=== PATIENT | female | born 1990 | race Caucasian/White ===

== ENCOUNTER 2016-10-06 11:05 | Emergency (ER) | payer SELFPAY ==
[~2016-10-06] VITALS: Ht 165.1 cm; Wt 46.3 kg
[~2016-10-06 11:05] MED LIST: PREN-96 PO
[2016-10-06 12:00] LABS: Basophils # (auto) 0 uL; Basophils % (auto) 0.4 % (0.0-2.0); Eosinophils # (auto) 0 uL; Eosinophils % (auto) 0.1 % (0.0-7.0); Hematocrit 41.5 % (36.0-46.0); Hemoglobin 13.2 g/dL (12.2-16.2); Lymphocytes # (auto) 1.8 uL; Lymphocytes % (auto) 14.6 % (10.0-50.0); Mean Corpuscular Hemoglobin 27.9 pg (28.0-32.0); Mean Corpuscular Hgb Conc. 31.9 g/dL (32.0-36.0); Mean Corpuscular Volume 87.4 fL (80.0-100.0); Mean Platelet Volume 9.3 fL (7.4-10.4); Monocytes # (auto) 0.8 uL; Monocytes % (auto) 6.6 % (0.0-12.0); Neutrophils # (auto) 9.5 uL; Neutrophils % (auto) 78.3 % (37.0-80.0); Platelet Count (auto) 257 10^3/uL (140-450); Red Cell Distribution Width 14.6 % (11.6-16.0); White Blood Cell 12.1 10^3/uL (4.4-10.8)
[2016-10-06 12:21] LABS: Albumin 4.1 g/dL (3.4-5.0); BUN/Creatinine Ratio 13.7; Bilirubin, Total 0.9 mg/dL (0.2-1.0); Calcium 8.7 mg/dL (8.5-10.1); Magnesium 2.1 mg/dL (1.6-2.6); Potassium 3.4 mmol/L (3.5-5.1); Total Protein 7.2 g/dL (6.4-8.2)
[2016-10-06 14:22] LABS: Urine Bilirubin Negative (Negative); Urine Blood Negative /uL (Negative); Urine Color Yellow (Yellow); Urine Glucose Normal (Normal); Urine Mucus FEW (None Seen); Urine Nitrite Negative (Negative); Urine RBC 1 /hpf (0 - 4); Urine Squamous Epithelial Cell FEW /hpf (<5); Urine Urobilinogen Normal (Negative)
[2016-10-06 14:24] LABS: Urine Ketone 3+ (Negative)
[2016-10-06] MEDS ORDERED: HYDROmorphone HCL 2 MG/ML VL IV ONE (14:30)
[2016-10-06] MEDS ORDERED: PANTOPRAZOLE SODIUM 40 MG/10 ML VIAL IV ONE (14:30)
[2016-10-06] MEDS ORDERED: ONDANSETRON HCL 4 MG/2 ML VIAL IV ONE (14:30)
[2016-10-06 15:50] VITALS: BP 107/63
[2016-10-07] MEDS ORDERED: ALBUAER3 IN (18:25)
== END 2016-10-06 16:08 | disposition home or self-care (01) ==
LOC: ER 11:09
DX: K29.70 Gastritis, unspecified, without bleeding (principal); J45.909 Unspecified asthma, uncomplicated; F17.210 Nicotine dependence, cigarettes, uncomplicated; F12.10 Cannabis abuse, uncomplicated
CPT/HCPCS: 36415; 80053; 81001; 83735; 84484; 85025; 93005; 94761; 96374; 96375; 99285; C9113; J1170; J2405

== ENCOUNTER 2016-10-07 11:19 | Inpatient (IN) | payer SELFPAY ==
[~2016-10-07] VITALS: Ht 165.1 cm; Wt 48.3 kg
[2016-10-07 13:07] LABS: Urine RBC None Seen /hpf (0 - 4)
[2016-10-07 13:24] LABS: Basophils # (auto) 0 uL; Basophils % (auto) 0.2 % (0.0-2.0); Eosinophils # (auto) 0 uL; Hematocrit 41.1 % (36.0-46.0); Lymphocytes # (auto) 0.9 uL; Lymphocytes % (auto) 7.9 % (10.0-50.0); Mean Corpuscular Hemoglobin 27.6 pg (28.0-32.0); Mean Corpuscular Hgb Conc. 31.7 g/dL (32.0-36.0); Mean Corpuscular Volume 87.1 fL (80.0-100.0); Mean Platelet Volume 9.5 fL (7.4-10.4); Monocytes # (auto) 0.4 uL; Monocytes % (auto) 3.1 % (0.0-12.0); Neutrophils # (auto) 10.6 uL; Neutrophils % (auto) 88.8 % (37.0-80.0); Platelet Count (auto) 244 10^3/uL (140-450); Red Cell Distribution Width 14.5 % (11.6-16.0); White Blood Cell 11.9 10^3/uL (4.4-10.8)
[2016-10-07 13:32] LABS: Urine Bilirubin Negative (Negative); Urine Blood Negative /uL (Negative); Urine Color Yellow (Yellow); Urine Glucose Normal (Normal); Urine Mucus FEW (None Seen); Urine Nitrite Negative (Negative); Urine Squamous Epithelial Cell FEW /hpf (<5); Urine Urobilinogen Normal (Negative)
[2016-10-07 13:33] LABS: Urine Ketone 4+ (Negative)
[2016-10-07 13:43] LABS: Potassium 3.6 mmol/L (3.5-5.1)
[2016-10-07 13:51] LABS: Albumin 4.2 g/dL (3.4-5.0); BUN/Creatinine Ratio 14.1; Calcium 8.4 mg/dL (8.5-10.1); Magnesium 1.9 mg/dL (1.6-2.6)
[2016-10-07 14:46] LABS: Bilirubin, Total 1.2 mg/dL (0.2-1.0); Total Protein 7.1 g/dL (6.4-8.2)
[2016-10-07] MEDS ORDERED: MORPHINE SULF INJ 2 MG/ML SYRINGE 1ML IV ONE (16:15)
[2016-10-07] MEDS ORDERED: ONDANSETRON HCL 4 MG/2 ML VIAL IM ONE (16:15)
[2016-10-07] MEDS ORDERED: LEVOFLOXACIN 500MG 100 ML IV ONE ×2 (18:00→18:45)
[2016-10-07] MEDS ORDERED: metroNIDAZOLE 500MG/100ML 100 ML IV ONE (18:00)
[2016-10-07 18:24] LABS: Amylase 28 U/L (25-115)
[2016-10-07] MEDS ORDERED: ALBUAER3 IN (18:25)
[2016-10-07] MEDS ORDERED: LORazepam 0.5 MG TAB PO PRN (18:45)
[2016-10-07] MEDS ORDERED: ALBUTEROL SULF 2.5 MG/0.5ML(0.5%) NEB SOLN NEB PRN (18:45)
[2016-10-07] MEDS ORDERED: HYDROcodone-ACET 5/325MG TAB PO PRN (18:45)
[2016-10-07] MEDS ORDERED: TEMAZEPAM 15 MG CAP PO PRN (18:45)
[2016-10-07] MEDS ORDERED: ACETAMINOPHEN 500 MG TAB PO PRN (18:45)
[2016-10-07] MEDS: SODIUM CHLORIDE 0.9% 1,000 ML IV SCH (19:04)
[2016-10-07] MEDS: PANTOPRAZOLE 40 MG TAB PO SCH (19:16)
[2016-10-07 19:40] VITALS: BP 133/77
[2016-10-07] MEDS: PROMETHAZINE HCL 25 MG/ML 1ML IV PRN (20:47)
[2016-10-07 21:34] VITALS: BP 133/77
[2016-10-07] MEDS: metroNIDAZOLE 500MG/100ML 100 ML IV SCH (23:24)
[2016-10-07] MEDS: MORPHINE SULF INJ 2 MG/ML SYRINGE 1ML IV PRN (23:56)
[2016-10-08] VITALS (7 sets, daily range): BP systolic 105–152; BP diastolic 53–92
[2016-10-08] MEDS: PROMETHAZINE HCL 25 MG/ML 1ML IV PRN ×2 (02:44→06:52)
[2016-10-08] MEDS: metroNIDAZOLE 500MG/100ML 100 ML IV SCH ×3 (05:11→17:52)
[2016-10-08] MEDS: SODIUM CHLORIDE 0.9% 1,000 ML IV SCH (05:12)
[2016-10-08 06:22] LABS: Basophils # (auto) 0 uL; Basophils % (auto) 0.3 % (0.0-2.0); Eosinophils # (auto) 0 uL; Eosinophils % (auto) 0.2 % (0.0-7.0); Hemoglobin 11.4 g/dL (12.2-16.2); Lymphocytes # (auto) 2.7 uL; Lymphocytes % (auto) 26.9 % (10.0-50.0); Mean Corpuscular Hemoglobin 27.6 pg (28.0-32.0); Mean Corpuscular Hgb Conc. 31.7 g/dL (32.0-36.0); Mean Corpuscular Volume 86.9 fL (80.0-100.0); Mean Platelet Volume 9.8 fL (7.4-10.4); Monocytes # (auto) 0.6 uL; Neutrophils # (auto) 6.8 uL; Neutrophils % (auto) 66.6 % (37.0-80.0); Platelet Count (auto) 205 10^3/uL (140-450); Red Cell Distribution Width 14.4 % (11.6-16.0); White Blood Cell 10.2 10^3/uL (4.4-10.8)
[2016-10-08 06:38] LABS: Albumin 2.9 g/dL (3.4-5.0); BUN/Creatinine Ratio 13.4; Calcium 7.7 mg/dL (8.5-10.1)
[2016-10-08] MEDS: MORPHINE SULF INJ 2 MG/ML SYRINGE 1ML IV PRN ×2 (06:51→23:52)
[2016-10-08 07:07] LABS: Total Protein 5.5 g/dL (6.4-8.2)
[2016-10-08] MEDS: PANTOPRAZOLE 40 MG TAB PO SCH (09:51)
[2016-10-08] MEDS ORDERED: LEVOFLOXACIN 500MG 100 ML IV SCH (10:00)
[2016-10-08] MEDS: SOD CHL 0.9%/ KCL 40MEQ 1,000 ML IV SCH ×2 (11:40→21:15)
[2016-10-08] MEDS ORDERED: GOLYTELY 4L KIT PO ONE (12:00)
[2016-10-08 12:45] LABS: Prothrombin Time 13.2 sec (9.37-12.3)
[2016-10-08 12:46] LABS: INR 1.28 (0.9-1.15)
[2016-10-09] VITALS (7 sets, daily range): BP systolic 90–123; BP diastolic 46–82
[2016-10-09] MEDS: PROMETHAZINE HCL 25 MG/ML 1ML IV PRN (05:11)
[2016-10-09] MEDS: metroNIDAZOLE 500MG/100ML 100 ML IV SCH ×2 (05:45)
[2016-10-09] MEDS: MORPHINE SULF INJ 2 MG/ML SYRINGE 1ML IV PRN (05:45)
[2016-10-09 06:07] LABS: Potassium 3.7 mmol/L (3.5-5.1)
[2016-10-09] MEDS: SOD CHL 0.9%/ KCL 40MEQ 1,000 ML IV SCH ×2 (07:15→17:15)
[2016-10-09] MEDS ORDERED: SODIUM CHLORIDE LOCK 10 ML ONE (08:13)
[2016-10-09] MEDS ORDERED: diphenhdrAMINE HCL 50 MG/1 ML VL ONE (08:13)
[2016-10-09] MEDS ORDERED: LIDOCAINE VISCOUS 2% 15ML UD ONE (08:13)
[2016-10-09] MEDS ORDERED: NALOXONE HCL 0.4 MG/ML VIAL ONE (08:14)
[2016-10-09] MEDS ORDERED: FLUMAZENIL 0.1 MG/ML INJ 10ML MDV IV ONE (08:14)
[2016-10-09] MEDS: fentaNYL CITRATE 100 MCG/2 ML VL ONE ×4 (09:02→09:13)
[2016-10-09] MEDS: MIDAZOLAM HCL 5 MG/ML-1ML VIAL ONE ×4 (09:02→09:13)
[2016-10-09] MEDS ORDERED: PANTOPRAZOLE 40 MG TAB PO SCH (10:00)
== END 2016-10-09 19:55 | disposition home or self-care (01) | DRG 391 ==
LOC: EDUNIT# 11:19 → ER 11:19 → OVERFLOW 11:20 → WEST WING 19:43
PROVIDERS: ADMIT Internal Medicine; ATTEND Internal Medicine Pulmonary Disease
PROC: 0DB68ZX Excision of Stomach, Via Natural or Artificial Opening Endoscopic, Diagnostic (ICD-10-PCS; principal; 2016-10-09 09:00)
PROC: 0DJD8ZZ Inspection of Lower Intestinal Tract, Via Natural or Artificial Opening Endoscopic (ICD-10-PCS; 2016-10-09 09:00)
DX: K29.80 Duodenitis without bleeding (principal); E43 Unspecified severe protein-calorie malnutrition; Z68.1 Body mass index [BMI] 19.9 or less, adult; K52.9 Noninfective gastroenteritis and colitis, unspecified; J45.909 Unspecified asthma, uncomplicated; F17.210 Nicotine dependence, cigarettes, uncomplicated; F41.9 Anxiety disorder, unspecified; E87.6 Hypokalemia; K29.60 Other gastritis without bleeding; Z82.49 Family history of ischemic heart disease and other diseases of the circulatory system; Z98.890 Other specified postprocedural states
CPT/HCPCS: 36415; 43239; 45378; 74176; 80051; 80053; 81001; 81025; 82150; 82378; 83690; 83735; 84484; 84702; 85025; 85610; 85652; 86141; 87045; 87086; 87493; 87899; 94640; 94761; 96365; 96367; 96372; 96375; J1956; J2250; J2405; J3490